=== PATIENT | female | born 1970 | race Caucasian/White ===

== ENCOUNTER → 2017-12-07 10:25 | Outpatient (CLI) | payer OTHER, SELFPAY ==
--- NOTE | 2017-12-07 | DI.MG.S_ITS ---
BILATERAL DIGITAL SCREENING MAMMOGRAM 3D/2D WITH CAD: 12/07/2017 CLINICAL: Routine screening. Family history of breast cancer. Comparison is made to exam dated: 02/05/2013 [facility]. The tissue of both breasts is heterogeneously dense. This may lower the sensitivity of mammography. Current study was also evaluated with a Computer Aided Detection (CAD) system. No significant masses, calcifications, or other findings are seen in either breast. There has been no significant interval change. IMPRESSION: NEGATIVE There is no mammographic evidence of malignancy. A 1 year screening mammogram is recommended. This exam was interpreted at Station ID: [id number]. NOTE: For mammograms, a report in lay terms will be sent to the patient. Approximately 15% of breast malignancies will not be visualized mammographically. In the management of a palpable breast mass, a negative mammogram must not discourage biopsy of a clinically suspicious lesion. Electronically Signed By: Sunita robert/dominic:12/09/2017 14:29:02 letter sent: Normal Exam ACR BI-RADS Category 1: Negative 3341F
== END ==
PROVIDERS: PCP Family Medicine; Visit Provider Family Medicine
DX: Z12.31 Encounter for screening mammogram for malignant neoplasm of breast (principal); Z80.3 Family history of malignant neoplasm of breast
CPT/HCPCS: 77063; 77067

== ENCOUNTER → 2020-08-17 14:15 | Outpatient (CLI) | payer OTHER, SELFPAY ==
--- NOTE | 2020-08-17 14:18 | DI.MG.S_ITS ---
BILATERAL DIGITAL SCREENING MAMMOGRAM 3D/2D WITH CAD: 08/17/2020 CLINICAL: Routine screening. Family history of breast cancer. Comparison is made to exams dated: 12/07/2017 mammogram and 02/05/2013 mammogram - [facility]. The tissue of both breasts is heterogeneously dense. This may lower the sensitivity of mammography. Current study was also evaluated with a Computer Aided Detection (CAD) system. No significant masses, calcifications, or other findings are seen in either breast. There has been no significant interval change. IMPRESSION: NEGATIVE There is no mammographic evidence of malignancy. A 1 year screening mammogram is recommended. This exam was interpreted at Station ID: [id number]. NOTE: For mammograms, a report in lay terms will be sent to the patient. Approximately 15% of breast malignancies will not be visualized mammographically. In the management of a palpable breast mass, a negative mammogram must not discourage biopsy of a clinically suspicious lesion. Electronically Signed By: Maxx metzger/dominic:08/17/2020 15:26:12 letter sent: Normal Exam ACR BI-RADS Category 1: Negative 3341F
== END ==
PROVIDERS: PCP Family Medicine; Referring Provider Family Medicine; Visit Provider Family Medicine
DX: Z12.31 Encounter for screening mammogram for malignant neoplasm of breast (principal); Z80.3 Family history of malignant neoplasm of breast
CPT/HCPCS: 77063; 77067

== ENCOUNTER → 2021-08-15 12:04 | Outpatient (CLI) | payer OTHER, SELFPAY ==
--- NOTE | 2021-08-15 | DI.US.S_ITS ---
PROCEDURE: US PELVIC COMPLETE INDICATIONS: Irregular menstruation, unspecified TECHNIQUE: Real-time scanning was performed of the pelvic organs, with image documentation. Additional endovaginal scanning was necessary due to incomplete visualization of the adnexal and endometrial structures by transabdominal scanning. COMPARISON: None. FINDINGS: Uterus: Uterus is anteverted and normal in size at 8.0 x 4.8 x 6.3 cm. The myometrium is 8.5. The endometrium measures 8.5 mm combined thickness. 3.2 x 4.2 x 3.4 cm anterior intramural fibroid. Ovaries: Right ovary measures 4.9 x 2.8 x 3.0 cm and the left 3.6 x 1.6 x 1.8 cm. Complex right ovarian cyst with echogenic focus along the posterior wall overall measuring 1.6 x 1.5 x 1.7 cm. 2nd mildly complex right ovarian cyst is also present measuring up to 1.6 cm. Simple appearing left ovarian cyst measuring 2.3 cm. Other: No pathologic free abdominal or pelvic fluid. IMPRESSION: 1. 2 complex cyst involving the right ovary and a simple cyst involves the left ovary. Recommend short-term follow-up pelvic ultrasound in 6-12 weeks to assess for temporal resolution and/or change. 2. 4.2 cm anterior intramural fibroid. We strive to produce accurate, complete, and clear reports of imaging services. To assist us in improving patient care, this report was composed using standard report templates and voice recognition software. Therefore, it may contain abnormal punctuation, insertions and/or omissions. Occasional wrong-word or sound-alike substitutions may occur. Though we review the report and make efforts to correct it, we do recommend that the report be read carefully in proper context to recognize any text inaccuracies. Dictated by: Guero KWON Interpreted: Sunita Castro MD on 08/15/2021 at 17:03 Approved by: Sunita Castro M.D. on 08/18/2021 at 12:29
== END ==
PROVIDERS: PCP Family Medicine; Referring Provider Internal Medicine; Visit Provider Internal Medicine
DX: D25.1 Intramural leiomyoma of uterus (principal); N92.6 Irregular menstruation, unspecified; N83.292 Other ovarian cyst, left side; N83.291 Other ovarian cyst, right side; R14.0 Abdominal distension (gaseous); K59.00 Constipation, unspecified
CPT/HCPCS: 76830; 76856

== ENCOUNTER → 2021-10-06 08:15 | Outpatient (CLI) | payer OTHER, SELFPAY ==
--- NOTE | 2021-10-06 08:17 | DI.MG.S_ITS ---
BILATERAL DIGITAL SCREENING MAMMOGRAM 3D/2D WITH CAD: 10/06/2021 CLINICAL: Routine screening. Family history of breast cancer. Comparison is made to exams dated: 08/17/2020 mammogram and 12/07/2017 mammogram - [facility]. Both breasts are heterogeneously dense, which may obscure small masses (category c / 51-75% glandular tissue). Current study was also evaluated with a Computer Aided Detection (CAD) system. No significant masses, calcifications, or other findings are seen in either breast. There has been no significant interval change. IMPRESSION: NEGATIVE There is no mammographic evidence of malignancy. A 1 year screening mammogram is recommended. Based on Tyrer-Cuzick model (a risk assessment model), the patient's lifetime risk is 29.3% and her 10 year risk is 7.8%. If a patient has an elevated risk, a more comprehensive evaluation should be considered and/or a referral to a genetic counselor. The [place] [employer], [employer], and NCCN Guidelines advise the consideration of Breast MRI as an adjunct to screening mammography in patients whose Lifetime risk to develop breast cancer is 20% or higher. This exam was interpreted at Station ID: [id number]. NOTE: For mammograms, a report in lay terms will be sent to the patient. Approximately 15% of breast malignancies will not be visualized mammographically. In the management of a palpable breast mass, a negative mammogram must not discourage biopsy of a clinically suspicious lesion. Electronically Signed By: Tru garcía/dominic:10/06/2021 08:43:27 letter sent: Normal Exam ACR BI-RADS Category 1: Negative 3341F
== END ==
PROVIDERS: PCP Family Medicine; Referring Provider Family Medicine; Visit Provider Family Medicine
DX: Z12.31 Encounter for screening mammogram for malignant neoplasm of breast (principal); Z80.3 Family history of malignant neoplasm of breast
CPT/HCPCS: 77063; 77067

== ENCOUNTER → 2022-04-30 08:26 | Outpatient (CLI) | payer OTHER, SELFPAY ==
--- NOTE | 2022-04-30 | DI.US.S_ITS ---
PROCEDURE: US ABDOMEN COMPLETE INDICATIONS: IRREGULAR MENSTRUATION, ABDOMINAL DISTENSION TECHNIQUE: Real-time scanning was performed of the abdominal and retroperitoneal organs, with image documentation. COMPARISON: None. FINDINGS: Liver: Liver is normal in size and homogeneous in echotexture. Gallbladder: Unremarkable. Biliary ducts: Intrahepatic bile ducts are non-dilated. Extrahepatic bile duct caliber measures 3 mm. Normal is 6-7 mm or less in diameter, or 10 mm or less post-cholecystectomy. Pancreas: Visualized portions of the pancreas are sonographically normal. Spleen: Spleen is normal in size and homogeneous in echotexture. Kidneys: Kidneys are normal in size and echotexture. Right kidney measures 9 cm long; left kidney measures 10.4 cm long. No hydronephrosis or nephrolithiasis. No solid masses. Aorta: Visualized aorta is normal in caliber at less than 3 cm. Iliacs: Proximal common iliac arteries are normal in caliber at less than 2.5 cm. IVC: Intrahepatic inferior vena cava is patent. Miscellaneous: No free abdominal fluid. IMPRESSION: No acute abnormality. No ascites. Dictated by: Carlos Finley M.D. on 04/30/2022 at 9:52 Approved by: Carlos Finley M.D. on 04/30/2022 at 9:59
--- NOTE | 2022-04-30 | DI.US.S_ITS ---
PROCEDURE: US PELVIC COMPLETE INDICATIONS: IRREGULAR MENSTRUATION, ABDOMINAL DISTENSION TECHNIQUE: Real-time scanning was performed of the pelvic organs, with image documentation. Additional endovaginal scanning was necessary due to incomplete visualization of the adnexal and endometrial structures by transabdominal scanning. COMPARISON: [facility], US, US ABDOMEN COMPLETE, 04/30/2022, 8:03. [facility], US, US PELVIC COMPLETE, 08/15/2021, 12:23. FINDINGS: Uterus: Uterus is retroverted and normal in size at 6 x 4 x 5.4 cm. The myometrium is heterogeneous. The endometrium measures 2 3 mm combined thickness. Hypoechoic uterine lesions are seen, which are attributed to fibroids. They measure as follows: Left mid posterior uterus, subserosal, 1.5 x 1.2 x 1.5 cm Fundal anterior, subserosal, 0.7 x 0.6 x 0.7 cm. Increased vascularity is noted. Ovaries: The right ovary measures 2.8 x 1.7 x 2 cm, with a calculated ovarian volume of 4.7 cc. The left ovary measures 2.4 x 2.4 x 1.6 cm, with a calculated ovarian volume of 8.3 cc. The ovaries have a normal sonographic appearance. Less than 12 follicles can be seen in each ovary. No adnexal masses are seen. Other: No pathologic free abdominal or pelvic fluid. IMPRESSION: Uterine fibroids are seen, including is 0.7 cm fundal fibroid that demonstrates increased vascularity. No abnormal ovarian cysts are now seen. We strive to produce accurate, complete, and clear reports of imaging services. To assist us in improving patient care, this report was composed using standard report templates and voice recognition software. Therefore, it may contain abnormal punctuation, insertions and/or omissions. Occasional wrong-word or sound-alike substitutions may occur. Though we review the report and make efforts to correct it, we do recommend that the report be read carefully in proper context to recognize any text inaccuracies. Dictated by: Tyrell Vyas M.D. on 04/30/2022 at 13:51 Approved by: Tyrell Vyas M.D. on 04/30/2022 at 13:54
== END ==
PROVIDERS: PCP Family Medicine; Referring Provider Family Medicine; Visit Provider Family Medicine
DX: N92.6 Irregular menstruation, unspecified (principal); D25.2 Subserosal leiomyoma of uterus; N83.201 Unspecified ovarian cyst, right side; N83.202 Unspecified ovarian cyst, left side; R14.0 Abdominal distension (gaseous)
CPT/HCPCS: 76700; 76856

== ENCOUNTER 2022-06-19 07:06 | Day surgery (SDC) | payer OTHER, SELFPAY ==
[2022-06-19 07:29] VITALS: BP 125/86; PULSE 81; RESP 16; TEMP 36.5; O2SAT 97; BMI 25.0
[2022-06-19] MEDS: LACTATED RINGERS 1,000 ML 42 ML IV (08:35)
--- NOTE | 2022-06-19 09:17 | PM.HP.1 ---
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 They have never had any previous examination for such. No personal or family history of colon cancer. Over the past several years she reports abdominal occasional bloating nausea scant blood per rectum. 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 Technical details were discussed. Risks, benefits, alternatives explained. Risks including but not limited to myocardial infarction, aspiration, bleeding, pain, missed lesion, incomplete examination, need for further radiographic studies, colonic perforation, and need for major abdominal surgery were discussed. All questions were answered to their satisfaction, and they are in agreement with this plan.
--- NOTE | 2022-06-19 09:23 | PM.OP.COLON ---
Operative Date/Time/Diagnoses Date of procedure: 06/19/22 Time of procedure: : Pre-op diagnosis: Colorectal screening Post-op diagnosis: same Procedure & Clinicians Study performed: Colonoscopy Same procedure as scheduled: Yes Indications: Colorectal screening Surgeon: Ang Garcia Procedure Notes Procedure in detail: The history and physical was performed/updated and the patient is ASA class is 1. The procedure was discussed in detail with the patient. Potential risks complications including infection, bleeding, missed diagnosis, perforation, need for surgery, and were explained. Their questions were answered and informed consent was obtained. Patient was brought to the procedure room and placed standard monitoring equipment. The patient's vital signs were monitored continuously throughout the entire procedure. Prior to starting time-out was performed. The patient was placed in the left lateral recumbent position. Procedural sedation was administered by anesthesia. Examination began with a thorough inspection of the perianal area there was no evidence of fissures, fistulae, external hemorrhoids or cutaneous malignancy. The colonoscopy scope was then placed into the anal canal and was advanced to the cecum, which was identified by the ileocecal valve, the appendiceal orifice and the confluence of the taenia. The scope was then slowly withdrawn examining colon thoroughly in all directions, irrigating it of any residual stool. No masses or polyps. Mild diverticulosis of the sigmoid colon. Grade 1 internal hermorrhoids. The patient tolerated the procedure well. They will be discharged once criteria are met. The prep was of good/excellent quality. The withdrawl time was 6 minutes. Specimen(s): none sent Complications: none Post-procedure Recommendations: Colonoscopy in 10 years and High fiber diet Disposition: same day surgery
[2022-06-19 09:48] VITALS: BP 122/95; PULSE 66; RESP 22; TEMP 36.1; O2SAT 97
[2022-06-19 09:52] VITALS: BP 125/83; PULSE 64; RESP 20; O2SAT 97
[2022-06-19 10:02] VITALS: BP 125/94; PULSE 64; RESP 18; O2SAT 98
== END 2022-06-19 10:21 | disposition home or self-care (01) ==
PROVIDERS: PCP Family Medicine; Referring Provider Surgery; Visit Provider Surgery
PROC: 0DJD8ZZ Inspection of Lower Intestinal Tract, Via Natural or Artificial Opening Endoscopic (ICD-10-PCS; CPT 45378; principal; 2022-06-19 08:15)
DX: Z12.11 Encounter for screening for malignant neoplasm of colon (principal); K64.0 First degree hemorrhoids; K57.30 Diverticulosis of large intestine without perforation or abscess without bleeding
CPT/HCPCS: 45378; J2704

== ENCOUNTER → 2023-06-20 14:57 | Outpatient (CLI) | payer BC, SELFPAY ==
--- NOTE | 2023-06-20 15:00 | DI.MG.S_ITS ---
BILATERAL DIGITAL SCREENING MAMMOGRAM 3D/2D WITH CAD: 06/20/2023 CLINICAL: Routine screening. Family history of breast cancer. Comparison is made to exams dated: 08/17/2020 mammogram, 10/06/2021 mammogram, and 12/07/2017 mammogram - [facility]. Both breasts are heterogeneously dense, which may obscure small masses (category c / 51-75% glandular tissue). Current study was also evaluated with a Computer Aided Detection (CAD) system. There are benign calcifications in both breasts. There is a cluster of two asymmetries in the right breast middle depth central to the nipple seen on the craniocaudal view only. No other significant masses, calcifications, or other findings are seen in either breast. IMPRESSION: INCOMPLETE: NEEDS ADDITIONAL IMAGING EVALUATION The cluster of asymmetries in the right breast is indeterminate. Additional views with possible ultrasound are recommended. Based on Tyrer-Cuzick model (a risk assessment model), the patient's lifetime risk is 29.0% and her 10 year risk is 8.1%. If a patient has an elevated risk, a more comprehensive evaluation should be considered and/or a referral to a genetic counselor. The [place] [employer], [employer], and NCCN Guidelines advise the consideration of Breast MRI as an adjunct to screening mammography in patients whose Lifetime risk to develop breast cancer is 20% or higher. This exam was interpreted at Station ID: [id number]. NOTE: For mammograms, a report in lay terms will be sent to the patient. Approximately 15% of breast malignancies will not be visualized mammographically. In the management of a palpable breast mass, a negative mammogram must not discourage biopsy of a clinically suspicious lesion. Electronically Signed By: Sunita robert/:06/20/2023 16:09:51 letter sent: Additional Imaging Needed ACR BI-RADS Category 0: Incomplete 3340F
== END ==
PROVIDERS: PCP Family Medicine; Referring Provider Family Medicine; Visit Provider Family Medicine
DX: Z12.31 Encounter for screening mammogram for malignant neoplasm of breast (principal); R92.333 Mammographic heterogeneous density, bilateral breasts; Z80.3 Family history of malignant neoplasm of breast
CPT/HCPCS: 77063; 77067

== ENCOUNTER → 2023-07-11 09:17 | Outpatient (CLI) | payer BC, SELFPAY ==
--- NOTE | 2023-07-11 | DI.US.S_ITS ---
LIMITED ULTRASOUND OF RIGHT BREAST: 07/11/2023 CLINICAL: Patient returns today to evaluate asymmetries in the right breast. Comparison is made to exams dated: 07/11/2023 mammogram, 06/20/2023 mammogram, 10/06/2021 mammogram, 08/17/2020 mammogram, 12/07/2017 mammogram, and 02/05/2013 mammogram - [facility]. Color flow and real-time ultrasound of the right breast 9-10 o'clock region were performed. Vargas scale images of the real-time examination were reviewed. There is a 7 mm round cyst in the right breast at 10 o'clock middle depth. This round cyst is anechoic. This correlates with mammography findings. Color flow imaging demonstrates that there is no vascularity present. There also is a benign irregular area of fibrocystic tissue in the right breast at 9 o'clock posterior depth. This irregular area of fibrocystic tissue is anechoic. This correlates with mammography findings. Color flow imaging demonstrates that there is no vascularity present. IMPRESSION: BENIGN There is no sonographic evidence of malignancy. The 7 mm round cyst in the right breast at 10 o'clock middle depth corresponds to the mammogram finding, and is benign. The irregular area of fibrocystic tissue in the right breast at 9 o'clock posterior depth also corresponds to the mammogram finding, is consistent with fibrocystic change and is benign. Return to annual mammogram screening schedule is recommended. Findings and recommendations were conveyed to the patient at time of exam. This exam was interpreted at Station ID: [id number]. Electronically Signed By: Diamond bianchi/:07/11/2023 11:10:43 letter sent: Normal Exam Ultrasound BI-RADS: 2 Benign
--- NOTE | 2023-07-11 | DI.MG.S_ITS ---
UNILATERAL RIGHT DIGITAL DIAGNOSTIC MAMMOGRAM 3D/2D WITH ADDITIONAL VIEWS: 07/11/2023 CLINICAL: Additional evaluation requested from prior study. Comparison is made to exams dated: 06/20/2023 mammogram, 10/06/2021 mammogram, and 08/17/2020 mammogram - [facility]. The right breast is heterogeneously dense, which may obscure small masses (category c / 51-75% glandular tissue). The 7 mm irregular equal density asymmetry in the right breast at 9 o'clock posterior depth probably persists with additional views. There also is a 7 mm irregular asymmetry in the right breast at 10 o'clock middle depth. This is questionably seen in additional views. No other significant masses or calcifications are seen in the breast. IMPRESSION: INCOMPLETE: NEEDS ADDITIONAL IMAGING EVALUATION The 7 mm asymmetries in the right breast at 9 and 10 o'clock posterior depth are indeterminate. An ultrasound is recommended. This was performed immediately following this exam. Based on Tyrer-Cuzick model (a risk assessment model), the patient's lifetime risk is 29.0% and her 10 year risk is 8.1%. If a patient has an elevated risk, a more comprehensive evaluation should be considered and/or a referral to a genetic counselor. The [place] [employer], [employer], and NCCN Guidelines advise the consideration of Breast MRI as an adjunct to screening mammography in patients whose Lifetime risk to develop breast cancer is 20% or higher. This exam was interpreted at Station ID: [id number]. NOTE: For mammograms, a report in lay terms will be sent to the patient. Approximately 15% of breast malignancies will not be visualized mammographically. In the management of a palpable breast mass, a negative mammogram must not discourage biopsy of a clinically suspicious lesion. Electronically Signed By: Diamond bianchi/:07/11/2023 10:01:18 ACR BI-RADS Category 0: Incomplete 3340F
== END ==
LOC: MAMMO 09:18
PROVIDERS: PCP Family Medicine; Referring Provider Family Medicine; Visit Provider Family Medicine
DX: R92.8 Other abnormal and inconclusive findings on diagnostic imaging of breast (principal); N60.01 Solitary cyst of right breast; R92.331 Mammographic heterogeneous density, right breast
CPT/HCPCS: 76642; 77065; G0279

== ENCOUNTER → 2024-12-21 15:01 | Outpatient (CLI) | payer OTHER, SELFPAY ==
--- NOTE | 2024-12-21 15:04 | DI.MG.S_ITS ---
MM screening mammo BI: 12/21/2024. BI-RADS: 1
== END ==
LOC: MAMMO 15:04
PROVIDERS: PCP Family Medicine; Referring Provider Family Medicine; Visit Provider Family Medicine
DX: Z12.31 Encounter for screening mammogram for malignant neoplasm of breast (principal); R92.333 Mammographic heterogeneous density, bilateral breasts; Z80.3 Family history of malignant neoplasm of breast
CPT/HCPCS: 77063; 77067